=== PATIENT | male | born 1980 | race Two or more races ===

== ENCOUNTER 2022-01-29 17:46 | Emergency (ER) | payer MEDICAID, OTHER ==
[~2022-01-29] VITALS: Ht 182.9 cm; Wt 127.0 kg
[2022-01-29 17:50] VITALS: BP 151/91
[2022-01-29] MEDS ORDERED: SUMAtriptan SUCCINATE 25 MG TAB PO ONE (18:45)
[2022-01-29] MEDS ORDERED: METOCLOPRAMIDE HCL 5MG/ml INJ 2ml VIAL IM ONE (20:00)
== END 2022-01-29 21:34 | disposition left against medical advice (07) ==
LOC: ER 17:50
DX: R51.9 Headache, unspecified (principal); I10 Essential (primary) hypertension; E11.9 Type 2 diabetes mellitus without complications
CPT/HCPCS: 93005